=== PATIENT | male | born 1970 | race African-American/Black ===

== ENCOUNTER 2025-01-11 08:53 | Emergency (ER) | payer OTHER ==
[~2025-01-11] VITALS: Ht 185.4 cm; Wt 79.5 kg
[~2025-01-11 08:53] MED LIST: FOLI0.8T54 PO; SEVE800T39 PO; TAMS0.4C94 PO
[2025-01-11 09:12] VITALS: TEMP 97.3
[2025-01-11 10:05] LABS: APPEARANCE,URINE HAZY (CLEAR); GLUCOSE, URINE (UA) NEGATIVE (NEGATIVE); LEUKOCYTE ESTERASE ,URINE SMALL (NEGATIVE); NITRATE,URINE NEGATIVE (NEGATIVE); OCCULT BLOOD,URINE TRACE (NEGATIVE); SPECIFIC GRAVITIY, URINE 1.010 (1.003-1.030)
[2025-01-11 10:17] LABS: SQUAMOUS EPITHELIAL CELL,UR Moderate /LPF (None Seen)
[2025-01-11 10:48] LABS: PLATELET COUNT (AUTO) 193 K/uL (150-450); RED BLOOD CELL COUNT(AUTO) 4.12 MIL/uL (4.50-5.90); RED CELL DISTRIBUTION WIDTH 14.6 % (11.5-14.5); WHITE BLOOD COUNT (AUTO) 12.1 K/uL (4.5-11.0)
[2025-01-11 10:57] LABS: CALCIUM, TOTAL 9.1 mg/dL (8.8-10.5); CREATININE 7.68 mg/dL (0.60-1.30); GLOMERULAR FILTR. RATE CALC 9 mL/min (>60); GLUCOSE,RANDOM 121 mg/dL (70-110); SODIUM SERUM 136 mmol/L (136-145); UREA NITROGEN, BLOOD 34 mg/dL (7-18)
[2025-01-11 11:01] LABS: ASPARTATE AMINOTRANSFERASE 12.0 U/L (15-37); TOTAL PROTEIN, SERUM 6.6 g/dL (6.4-8.2)
[2025-01-11 11:13] LABS: TROPONIN I-HIGH SENSITIVITY 7 ng/L (<76)
[2025-01-11] MEDS: DIPHENOXYLATE/ATROP 2.5-0.025 MG TABLET PO ONE (11:55)
[2025-01-11 12:11] VITALS: BP 128/75; PULSE 83; RESP 16; O2SAT 96
[2025-01-11] MEDS ORDERED: LEVO-72 PO (12:51)
== END 2025-01-11 13:19 | disposition home or self-care (01) ==
LOC: EMS 08:56
DX: R19.7 Diarrhea, unspecified (principal); N39.0 Urinary tract infection, site not specified; F12.90 Cannabis use, unspecified, uncomplicated; F17.210 Nicotine dependence, cigarettes, uncomplicated; N18.6 End stage renal disease; Z99.2 Dependence on renal dialysis; Z79.899 Other long term (current) drug therapy; Z98.890 Other specified postprocedural states
CPT/HCPCS: 80048; 80076; 81001; 83690; 84484; 85025; 87086; 93005; 99284

== ENCOUNTER 2025-01-23 12:22 | Inpatient (IN) | payer OTHER ==
[~2025-01-23] VITALS: Ht 185.4 cm; Wt 81.0 kg
[~2025-01-23 12:22] MED LIST changes: +LEVO-72 PO
[2025-01-23 12:57] LABS: PLATELET COUNT (AUTO) 377 K/uL (150-450); RED BLOOD CELL COUNT(AUTO) 3.34 MIL/uL (4.50-5.90); RED CELL DISTRIBUTION WIDTH 15.7 % (11.5-14.5)
[2025-01-23 13:05] LABS: WHITE BLOOD COUNT (AUTO) 35.7 K/uL (4.5-11.0)
[2025-01-23 13:08] LABS: CALCIUM, TOTAL 8.2 mg/dL (8.8-10.5); CREATININE 9.92 mg/dL (0.60-1.30); GLOMERULAR FILTR. RATE CALC 7.0 mL/min (>60); GLUCOSE,RANDOM 104.0 mg/dL (70-110); SODIUM SERUM 136.0 mmol/L (136-145); UREA NITROGEN, BLOOD 49.0 mg/dL (7-18)
[2025-01-23 13:13] LABS: ASPARTATE AMINOTRANSFERASE 17.0 U/L (15-37); TOTAL PROTEIN, SERUM 6.0 g/dL (6.4-8.2)
[2025-01-23 14:18] LABS: LACTIC ACID 0.7 mmol/L (0.4-2.0)
[2025-01-23] MEDS: SODIUM CHLORIDE 0.9% 1,000 ML IV ONE (14:30)
[2025-01-23] MEDS: VANCOMYCIN HCL 125 MG/2.5 ML SOLUTION ORAL.SYG PO SCH (14:31)
[2025-01-23] MEDS: PIPERACILLIN SODIUM/TAZOBACTAM 2.25 GM in DEXTROSE 5%-WATER 50 ML IV SCH (14:31)
[2025-01-23] MEDS: METOCLOPRAMIDE HCL 5 MG/ML 2 ML VIAL IVP ONE (14:32)
[2025-01-23] MEDS: ONDANSETRON HCL 4 MG/2 ML VIAL IVP PRN (16:36)
[2025-01-23] MEDS: MORPHINE SULFATE 2 MG/ML SYRINGE IVP ONE (16:37)
[2025-01-23 17:49] VITALS: BP 118/71; PULSE 100; RESP 20; TEMP 98.8; O2SAT 97
[2025-01-23 20:40] VITALS: BP 117/70; PULSE 95; RESP 18; TEMP 98.8; O2SAT 97
[2025-01-23] MEDS: ZOLPIDEM TARTRATE 5 MG TABLET PO PRN (23:14)
[2025-01-24] MEDS: ACETAMINOPHEN 325 MG TABLET PO PRN (00:31)
[2025-01-24 04:25] VITALS: BP 113/55; PULSE 91; RESP 18; TEMP 98.3; O2SAT 95
[2025-01-24 04:42] LABS: APPEARANCE,URINE CLEAR (CLEAR); GLUCOSE, URINE (UA) NEGATIVE (NEGATIVE); LEUKOCYTE ESTERASE ,URINE NEGATIVE (NEGATIVE); NITRATE,URINE NEGATIVE (NEGATIVE); OCCULT BLOOD,URINE TRACE (NEGATIVE); SPECIFIC GRAVITIY, URINE 1.011 (1.003-1.030)
[2025-01-24 05:39] LABS: C.DIFF GDH ANTIGEN, Stool Positive (Negative)
[2025-01-24 05:41] LABS: C.DIFF TOXINS A&B, Stool Positive (Negative)
[2025-01-24 06:59] LABS: BAND NEUTROPHILS % (MANUAL) 0 % (0-5)
[2025-01-24 07:09] LABS: PLATELET COUNT (AUTO) 352 K/uL (150-450); RED BLOOD CELL COUNT(AUTO) 3.04 MIL/uL (4.50-5.90); RED CELL DISTRIBUTION WIDTH 15.8 % (11.5-14.5)
[2025-01-24 07:15] LABS: CALCIUM, TOTAL 8.2 mg/dL (8.8-10.5); CREATININE 10.33 mg/dL (0.60-1.30); GLOMERULAR FILTR. RATE CALC 6.0 mL/min (>60); GLUCOSE,RANDOM 90.0 mg/dL (70-110); SODIUM SERUM 136.0 mmol/L (136-145); UREA NITROGEN, BLOOD 49.0 mg/dL (7-18)
[2025-01-24 07:16] LABS: WHITE BLOOD COUNT (AUTO) 31.7 K/uL (4.5-11.0)
[2025-01-24 07:33] VITALS: BP 104/55; PULSE 89; RESP 20; TEMP 97.9; O2SAT 96
[2025-01-24 07:47] LABS: LYMPHOCYTES % (MANUAL) 3 % (22-44); MONOCYTES % (MANUAL) 4 % (2-9); SEGMENTED NEUTROPHILS % 93 % (40-70)
[2025-01-24 07:49] LABS: RBC MORPHOLOGY COMMENT ABNORMAL R
[2025-01-24] MEDS: FAMOTIDINE 20 MG TABLET PO SCH (08:20)
[2025-01-24] MEDS ORDERED: SODIUM CHLORIDE 0.9% 1,000 ML ONE ×2 (11:41→11:42)
[2025-01-24 16:28] VITALS: BP 107/60; PULSE 84; RESP 20; TEMP 97.5; O2SAT 93
[2025-01-24] MEDS: PIPERACILLIN SODIUM/TAZOBACTAM 2.25 GM in DEXTROSE 5%-WATER 50 ML IV SCH (20:36)
[2025-01-25 06:19] VITALS: BP 102/61; PULSE 86; RESP 18; TEMP 97.9; O2SAT 96
[2025-01-25 06:22] LABS: PLATELET COUNT (AUTO) 396 K/uL (150-450); RED BLOOD CELL COUNT(AUTO) 3.13 MIL/uL (4.50-5.90); RED CELL DISTRIBUTION WIDTH 15.6 % (11.5-14.5); WHITE BLOOD COUNT (AUTO) 20.8 K/uL (4.5-11.0)
[2025-01-25 06:44] LABS: CALCIUM, TOTAL 8.5 mg/dL (8.8-10.5); CREATININE 10.88 mg/dL (0.60-1.30); GLOMERULAR FILTR. RATE CALC 6.0 mL/min (>60); GLUCOSE,RANDOM 83.0 mg/dL (70-110); SODIUM SERUM 137.0 mmol/L (136-145); UREA NITROGEN, BLOOD 51.0 mg/dL (7-18)
[2025-01-25 08:00] VITALS: BP 101/58; PULSE 87; RESP 19; TEMP 97.3; O2SAT 99
[2025-01-25] MEDS: FOLIC ACID/VIT B COMPLEX AND C TABLET PO SCH (13:42)
[2025-01-25 16:15] VITALS: BP 102/63; PULSE 77; RESP 16; TEMP 98.1; O2SAT 100
[2025-01-25] MEDS ORDERED: VANCOMYCIN 1GM/WATER(PEG/NADA) 200 ML IV PRN (17:45)
[2025-01-25 20:17] VITALS: BP 133/89; PULSE 88; RESP 18; TEMP 97.9; O2SAT 95
[2025-01-25] MEDS: VANCOMYCIN 1GM/WATER(PEG/NADA) 200 ML IV ONE (23:40)
[2025-01-26] VITALS (7 sets, daily range): BP systolic 98–121; BP diastolic 54–79; PULSE 78–93; RESP 18–20; TEMP 97.7–98.1; O2SAT 97–98
[2025-01-26 06:58] LABS: PLATELET COUNT (AUTO) 454 K/uL (150-450); RED BLOOD CELL COUNT(AUTO) 3.22 MIL/uL (4.50-5.90); RED CELL DISTRIBUTION WIDTH 15.8 % (11.5-14.5); WHITE BLOOD COUNT (AUTO) 13.2 K/uL (4.5-11.0)
[2025-01-26 07:12] LABS: CALCIUM, TOTAL 8.4 mg/dL (8.8-10.5); CREATININE 11.55 mg/dL (0.60-1.30); GLOMERULAR FILTR. RATE CALC 6.0 mL/min (>60); GLUCOSE,RANDOM 81.0 mg/dL (70-110); SODIUM SERUM 135.0 mmol/L (136-145); UREA NITROGEN, BLOOD 58.0 mg/dL (7-18)
[2025-01-26] MEDS: VANCOMYCIN 1GM/WATER(PEG/NADA) 200 ML IV ONE (09:51)
[2025-01-26] MEDS ORDERED: HEPARIN SODIUM,PORCINE 1,000 UNITS/ML VIAL ONE (12:00)
[2025-01-26] MEDS: HEPARIN SODIUM,PORCINE 1,000 UNITS/ML VIAL IVCATH ONE ×2 (19:55)
[2025-01-26] MEDS: HEPARIN SODIUM,PORCINE 1,000 UNITS/ML VIAL IVCATH PRN (19:55)
[2025-01-27 06:53] VITALS: BP 107/62; PULSE 84; RESP 18; TEMP 97.7; O2SAT 95
[2025-01-27] MEDS: ALBUMIN HUMAN 5%-12.5GM/250ML 250 ML IV ONE (09:44)
[2025-01-27 09:48] VITALS: BP 103/60; PULSE 75; RESP 18; TEMP 97.7; O2SAT 97
[2025-01-27 16:31] VITALS: BP 113/73; PULSE 80; RESP 18; TEMP 97.7; O2SAT 98
[2025-01-27] MEDS ORDERED: ALBUTEROL SULFATE 2.5 MG/0.5 ML NEB SOLUTION NEB PRN (17:30)
[2025-01-27] MEDS ORDERED: IPRATROPIUM BROMIDE 0.5 MG/2.5 ML NEB SOLUTION NEB PRN (17:30)
[2025-01-27 19:28] VITALS: BP 108/61; PULSE 82; RESP 18; TEMP 98.1; O2SAT 97
[2025-01-28] VITALS (15 sets, daily range): BP systolic 98–126; BP diastolic 54–81; PULSE 66–100; RESP 16–18; TEMP 97.7–98.2; O2SAT 97–99
[2025-01-28 09:39] LABS: CALCIUM, TOTAL 8.4 mg/dL (8.8-10.5); CREATININE 10.14 mg/dL (0.60-1.30); GLOMERULAR FILTR. RATE CALC 6.0 mL/min (>60); GLUCOSE,RANDOM 129.0 mg/dL (70-110); SODIUM SERUM 141.0 mmol/L (136-145); UREA NITROGEN, BLOOD 52.0 mg/dL (7-18)
[2025-01-28 09:42] LABS: PHOSPHORUS 7.2 mg/dL (2.5-4.9)
[2025-01-28] MEDS: POTASSIUM CHL 10 MEQ/WATER 50 ML IV SCH (11:22)
[2025-01-28] MEDS ORDERED: HEPARIN SODIUM,PORCINE 1,000 UNITS/ML VIAL ONE (12:00)
[2025-01-28] MEDS: POTASSIUM CHL 10 MEQ/WATER 50 ML IV ONE (13:54)
[2025-01-28] MEDS: LACTOBACILLUS ACIDOPHILUS/BULGARICUS GRANULES PACKET PO SCH (16:47)
[2025-01-28] MEDS ORDERED: SODIUM CHLORIDE 0.9% 1,000 ML ONE (18:51)
[2025-01-28] MEDS: HEPARIN SODIUM,PORCINE 1,000 UNITS/ML VIAL IVCATH ONE ×2 (22:57)
[2025-01-28] MEDS: HEPARIN SODIUM,PORCINE 1,000 UNITS/ML VIAL IVCATH PRN (22:57)
[2025-01-29] MEDS: POTASSIUM CHLORIDE 20 MEQ ER TABLET PO ONE ×2 (02:04→14:47)
[2025-01-29 04:00] VITALS: BP 106/54; PULSE 61; RESP 18; TEMP 97.7; O2SAT 98
[2025-01-29 08:11] VITALS: BP 100/55; PULSE 77; RESP 18; TEMP 97.5; O2SAT 98
[2025-01-29 09:30] LABS: PLATELET COUNT (AUTO) 462 K/uL (150-450); RED BLOOD CELL COUNT(AUTO) 3.19 MIL/uL (4.50-5.90); RED CELL DISTRIBUTION WIDTH 15.3 % (11.5-14.5); WHITE BLOOD COUNT (AUTO) 8.3 K/uL (4.5-11.0)
[2025-01-29 09:38] LABS: CALCIUM, TOTAL 8.8 mg/dL (8.8-10.5); CREATININE 5.98 mg/dL (0.60-1.30); GLOMERULAR FILTR. RATE CALC 12.0 mL/min (>60); GLUCOSE,RANDOM 105.0 mg/dL (70-110); SODIUM SERUM 142.0 mmol/L (136-145); UREA NITROGEN, BLOOD 23.0 mg/dL (7-18)
[2025-01-29] MEDS: POTASSIUM CHL 10 MEQ/WATER 50 ML IV SCH (10:29)
[2025-01-29] MEDS ORDERED: POTASSIUM CHL 10 MEQ/WATER 50 ML IV SCH (13:30)
[2025-01-29] MEDS ORDERED: SODIUM CHLORIDE 0.9% 1,000 ML ONE (13:53)
[2025-01-29 16:00] VITALS: BP 112/80; PULSE 80; RESP 18; TEMP 97.5; O2SAT 98
[2025-01-29 19:42] VITALS: BP 108/70; PULSE 72; RESP 17; TEMP 97.9; O2SAT 100
[2025-01-30] MEDS ORDERED: LACTOBACILLUS ACIDOPHILUS/BULGARICUS GRANULES PACKET PO SCH
[2025-01-30 04:30] VITALS: BP 109/61; PULSE 62; RESP 17; TEMP 98.1; O2SAT 99
[2025-01-30 07:00] VITALS: BP 102/57; PULSE 60; RESP 20; TEMP 98.2; O2SAT 97
[2025-01-30 08:30] LABS: PLATELET COUNT (AUTO) 456 K/uL (150-450); RED BLOOD CELL COUNT(AUTO) 3.04 MIL/uL (4.50-5.90); RED CELL DISTRIBUTION WIDTH 15.3 % (11.5-14.5); WHITE BLOOD COUNT (AUTO) 8.7 K/uL (4.5-11.0)
[2025-01-30 08:43] LABS: CALCIUM, TOTAL 8.9 mg/dL (8.8-10.5); CREATININE 7.25 mg/dL (0.60-1.30); GLOMERULAR FILTR. RATE CALC 10.0 mL/min (>60); GLUCOSE,RANDOM 86.0 mg/dL (70-110); SODIUM SERUM 141.0 mmol/L (136-145); UREA NITROGEN, BLOOD 33.0 mg/dL (7-18)
[2025-01-30] MEDS ORDERED: VANCOPO PO (09:33)
[2025-01-30] MEDS ORDERED: ACID1GRA PO (09:33)
[2025-01-30] MEDS ORDERED: POTA-92 PO (09:33)
[2025-01-30] MEDS: POTASSIUM CHLORIDE 20 MEQ ER TABLET PO ONE (13:28)
[2025-01-31] MEDS ORDERED: EPOETIN ALFA 10,000 UNITS/ML 2 ML VIAL SQ SCH (09:00)
== END 2025-01-30 17:01 | disposition home or self-care (01) | DRG 248 ==
LOC: EMS 12:22 → EDH 13:36 → 6S 14:20 → 6N 01-28 18:07
PROVIDERS: ADMIT Internal Medicine; ATTEND Internal Medicine
PROC: 5A1D70Z Performance of Urinary Filtration, Intermittent, Less than 6 Hours Per Day (ICD-10-PCS; principal; 2025-01-26)
PROC: 5A1D70Z Performance of Urinary Filtration, Intermittent, Less than 6 Hours Per Day (ICD-10-PCS; 2025-01-28)
DX: A04.72 Enterocolitis due to Clostridium difficile, not specified as recurrent (principal); I12.0 Hypertensive chronic kidney disease with stage 5 chronic kidney disease or end stage renal disease; N18.6 End stage renal disease; R78.81 Bacteremia; D63.8 Anemia in other chronic diseases classified elsewhere; I10 Essential (primary) hypertension; E87.6 Hypokalemia; F17.210 Nicotine dependence, cigarettes, uncomplicated; Z99.2 Dependence on renal dialysis
CPT/HCPCS: 74176; 80048; 80076; 81001; 83605; 83690; 83735; 84100; 84132; 85007; 85025; 85027; 87040; 87081; 87205; 87324; 87340; 87449; 90935; 93971; 99291; J0885; J1644; J2270; J2405; J2543; J2765; J3480; J7030; J7060; P9041

== ENCOUNTER 2025-02-27 21:40 | Inpatient (IN) | payer OTHER ==
[~2025-02-27] VITALS: Ht 185.4 cm; Wt 80.0 kg
[~2025-02-27 21:40] MED LIST changes: +ACID1GRA PO; -LEVO-72 PO; +POTA-92 PO; +VANCOPO PO
[2025-02-27 23:29] LABS: PLATELET COUNT (AUTO) 233 K/uL (150-450); RED BLOOD CELL COUNT(AUTO) 3.63 MIL/uL (4.50-5.90); RED CELL DISTRIBUTION WIDTH 16.3 % (11.5-14.5); WHITE BLOOD COUNT (AUTO) 9.0 K/uL (4.5-11.0)
[2025-02-27 23:39] LABS: CALCIUM, TOTAL 9.0 mg/dL (8.8-10.5); CREATININE 9.44 mg/dL (0.60-1.30); GLOMERULAR FILTR. RATE CALC 7.0 mL/min (>60); GLUCOSE,RANDOM 102.0 mg/dL (70-110); SODIUM SERUM 138.0 mmol/L (136-145); UREA NITROGEN, BLOOD 52.0 mg/dL (7-18)
[2025-02-27 23:45] LABS: ASPARTATE AMINOTRANSFERASE 13.0 U/L (15-37); TOTAL PROTEIN, SERUM 7.1 g/dL (6.4-8.2)
[2025-02-28 02:20] VITALS: BP 113/67; PULSE 83; RESP 16; TEMP 97.5; O2SAT 95
[2025-02-28 07:32] VITALS: BP 122/79; PULSE 88; RESP 18; TEMP 97.9; O2SAT 96
[2025-02-28 11:29] VITALS: BP 119/70; PULSE 80; RESP 18; TEMP 98; O2SAT 98
[2025-02-28 12:12] LABS: C.DIFF GDH ANTIGEN, Stool Positive (Negative)
[2025-02-28 12:14] LABS: C.DIFF TOXINS A&B, Stool Positive (Negative)
[2025-02-28] MEDS: FIDAXOMICIN 200 MG TABLET PO SCH (14:33)
[2025-02-28 15:30] VITALS: BP 112/76; PULSE 81; RESP 18; TEMP 98; O2SAT 97
[2025-02-28 17:20] VITALS: BP 115/73; PULSE 76; RESP 20; TEMP 97.7; O2SAT 99
[2025-02-28] MEDS ORDERED: MORPHINE SULFATE 4 MG/ML SYRINGE IVP PRN (17:30)
[2025-02-28] MEDS ORDERED: BISACODYL 10 MG RECTAL RECTAL SUPPOSITORY PR PRN (17:30)
[2025-02-28] MEDS ORDERED: ALBUTEROL SULFATE 2.5 MG/0.5 ML NEB SOLUTION NEB PRN (17:30)
[2025-02-28] MEDS ORDERED: ONDANSETRON HCL 4 MG/2 ML VIAL IVP PRN (17:30)
[2025-02-28] MEDS ORDERED: MAGNESIUM HYDROXIDE SUSPENSION 30 ML UDCUP PO PRN (17:30)
[2025-02-28] MEDS ORDERED: ACETAMINOPHEN 325 MG TABLET PO PRN (17:30)
[2025-02-28] MEDS ORDERED: IPRATROPIUM BROMIDE 0.5 MG/2.5 ML NEB SOLUTION NEB PRN (17:30)
[2025-02-28] MEDS: SEVELAMER CARBONATE 800 MG TABLET PO SCH (17:58)
[2025-02-28] MEDS: FOLIC ACID/VIT B COMPLEX AND C TABLET PO SCH (17:58)
[2025-02-28 19:43] VITALS: BP 126/81; PULSE 78; RESP 18; TEMP 97.3; O2SAT 100
[2025-02-28] MEDS: TAMSULOSIN HCL 0.4 MG CAPSULE PO SCH (21:48)
[2025-02-28] MEDS: LACTOBACILLUS ACIDOPHILUS/BULGARICUS GRANULES PACKET PO SCH (21:49)
[2025-03-01] VITALS (14 sets, daily range): BP systolic 109–131; BP diastolic 76–97; PULSE 60–100; RESP 17–20; TEMP 97.7–98.2; O2SAT 95–100
[2025-03-01] MEDS: HEPARIN SODIUM,PORCINE 5,000 UNITS/ML VIAL SQ SCH (00:10)
[2025-03-01] MEDS: ZOLPIDEM TARTRATE 5 MG TABLET PO PRN (00:47)
[2025-03-01] MEDS ORDERED: POTASSIUM CHLORIDE 10 MEQ ER TABLET PO SCH (09:00)
[2025-03-01] MEDS ORDERED: FOLIC ACID/VIT B COMPLEX AND C TABLET PO SCH (09:00)
[2025-03-01] MEDS ORDERED: HEPARIN SODIUM,PORCINE 1,000 UNITS/ML VIAL ONE (12:00)
[2025-03-01] MEDS ORDERED: SODIUM CHLORIDE 0.9% 2,000 ML ONE (13:03)
[2025-03-01] MEDS: HYDROCODONE/ACETAMINOPHEN 5-325 MG TABLET PO PRN (13:15)
[2025-03-01] MEDS: HEPARIN SODIUM,PORCINE 1,000 UNITS/ML VIAL IVCATH PRN ×2 (17:38)
[2025-03-01] MEDS: PANTOPRAZOLE SODIUM 40 MG DR TABLET PO SCH (18:23)
[2025-03-02 03:56] VITALS: BP 105/73; PULSE 89; RESP 18; TEMP 98.1; O2SAT 100
[2025-03-02 08:24] VITALS: BP 114/71; PULSE 83; RESP 18; TEMP 98; O2SAT 96
[2025-03-02] MEDS ORDERED: FIDA200T PO (10:28)
== END 2025-03-02 11:24 | disposition home or self-care (01) | DRG 248 ==
LOC: EMS 21:40 → EDH 02-28 00:01 → 5N 02-28 02:20 → 6S 02-28 16:50
PROVIDERS: ADMIT Hospitalist; ATTEND Hospitalist
PROC: 5A1D70Z Performance of Urinary Filtration, Intermittent, Less than 6 Hours Per Day (ICD-10-PCS; principal; 2025-03-01)
DX: A04.72 Enterocolitis due to Clostridium difficile, not specified as recurrent (principal); E43 Unspecified severe protein-calorie malnutrition; I12.0 Hypertensive chronic kidney disease with stage 5 chronic kidney disease or end stage renal disease; N18.6 End stage renal disease; D63.1 Anemia in chronic kidney disease; Z99.2 Dependence on renal dialysis; F17.210 Nicotine dependence, cigarettes, uncomplicated; N40.0 Benign prostatic hyperplasia without lower urinary tract symptoms; Z79.899 Other long term (current) drug therapy; Z68.23 Body mass index [BMI] 23.0-23.9, adult
CPT/HCPCS: 80048; 80076; 85025; 87324; 87340; 87449; 90935; 99285; J1644; J7030